=== PATIENT | male | born 1955 ===

== ENCOUNTER 2022-05-14 14:10 | Inpatient (IN) | payer OTHER ==
[~2022-05-14] VITALS: Ht 172.7 cm; Wt 74.8 kg
[2022-05-15] MEDS ORDERED: LISINOPRIL20 MG PO (14:09)
[2022-05-15] MEDS ORDERED: PROTONIX40 MG PO (14:10)
[2022-05-15] MEDS ORDERED: TRILIPIX135 MG PO (14:10)
[2022-05-21] MEDS ORDERED: INTESTINEX680 M1 (13:07)
== END 2022-06-03 19:31 | disposition home or self-care (01) | DRG 329 ==
LOC: SURG 05-21 07:00 → O/R 05-21 07:54 → SURG 05-21 12:30 → SURH 05-21 19:29
PROVIDERS: ADMIT Colon & Rectal Surgery; ATTEND Colon & Rectal Surgery
PROC: 0DBP4ZZ Excision of Rectum, Percutaneous Endoscopic Approach (ICD-10-PCS; 2022-05-21)
PROC: 0DTN4ZZ Resection of Sigmoid Colon, Percutaneous Endoscopic Approach (ICD-10-PCS; 2022-05-21)
PROC: 0WQF4ZZ Repair Abdominal Wall, Percutaneous Endoscopic Approach (ICD-10-PCS; 2022-05-21)
PROC: 0DBE4ZZ Excision of Large Intestine, Percutaneous Endoscopic Approach (ICD-10-PCS; principal; 2022-05-21 07:00)
PROC: BW21YZZ Computerized Tomography (CT Scan) of Abdomen and Pelvis using Other Contrast (ICD-10-PCS; 2022-05-27)
PROC: BW28ZZZ Computerized Tomography (CT Scan) of Head (ICD-10-PCS; 2022-05-27)
DX: K57.20 Diverticulitis of large intestine with perforation and abscess without bleeding (principal); A41.9 Sepsis, unspecified organism; A04.72 Enterocolitis due to Clostridium difficile, not specified as recurrent; K43.2 Incisional hernia without obstruction or gangrene; K66.0 Peritoneal adhesions (postprocedural) (postinfection); I12.9 Hypertensive chronic kidney disease with stage 1 through stage 4 chronic kidney disease, or unspecified chronic kidney disease; K21.9 Gastro-esophageal reflux disease without esophagitis; Z20.822 Contact with and (suspected) exposure to COVID-19; N18.30 Chronic kidney disease, stage 3 unspecified; Z43.3 Encounter for attention to colostomy